=== PATIENT | female | born 1985 | race Two or more races ===

== ENCOUNTER 2016-09-12 13:34 | Emergency (ER) | payer MEDICAID ==
[2016-09-12 14:00] VITALS: BP 142/101; PULSE 75; RESP 18; TEMP 98.2; O2SAT 96
--- NOTE | 2016-09-12 15:27 | UCPHY ---
H & P Time Seen by Provider: 09/12/16 15:21 Patient Type: Established HPI/ROS: HPI: 31-year-old female presents to urgent care with chief concern bed bug bites. Developed these lesions yesterday morning. Has a known bed bug infestation in her apartment. She and her children have gone to sleep at her mother's. Denies fever, chills, URI symptoms, abdominal pain, nausea, vomiting , diarrhea. Takes Claritin daily with some improvement. ROS:10 point review of systems is negative other than as stated in HPI Smoking Status: Current every day smoker Physical Exam: Vital signs stable, reviewed by me General: Awake, alert, calm, cooperative. No acute distress. Head: Normalocephalic. Atraumatic. EENT: PERRLA. EOMI. No pallor or injection. Neck: Supple, nontender. No lymphadenopathy. Full range of motion. No meningismus. Respiratory: Breathing unlabored. Breath sounds equal bilaterally and clear to auscultation. No adventitious sounds. CV: Chest nontender, atraumatic. Heart rate regular. GI: Abdomen soft, nontender. Bowel sounds normoactive and positive x4 quadrants. Neuro: Alert. Oriented x 3. Speech clear. Skin: Skin warm, dry, 1 cm diameter erythematous lesions scattered about the upper extremities, lower extremities, several on neck Extremities: Full range of motion in all 4 extremities. Strength 5+ all extremities. Constitutional: Initial Vital Signs Temperature (C) 36.8 C 09/12/16 13:57 Heart Rate 75 09/12/16 13:57 Respiratory Rate 18 09/12/16 13:57 Blood Pressure 142/101 H 09/12/16 13:57 O2 Sat (%) 96 09/12/16 13:57 O2 Delivery Mode Room Air Allergies/Adverse Reactions: No Known Allergies Allergy (Unverified 09/12/16 13:56) Home Medications: Medication Instructions Recorded Claritin 09/12/16 LYRICA 09/12/16 Triamcinolone Acetonide 60 ml TP Q3-4PRN PRN #1 lotion 09/12/16 [Triamcinolone Acetonide 0.1% Lot] Medical Decision Making ED Course/Re-evaluation: Afebrile nontoxic female presents to urgent care with known bed bug infestation of her apartment. Lesions appeared yesterday. She has gone to stay at her mother's house while her apartment is rehabilitation assistant id. She agrees to follow up next week primary care Differential Diagnosis: Bedbugs, scabies, dermatitis, infection Departure - Departure Disposition: Home, Routine, Self-Care Clinical Impression: Bedbug bite Qualifiers: Qualifier Code: (W57.XXXA) Bitten or stung by nonvenomous insect and other nonvenomous arthropods, initial encounter Condition: Good Additional Instructions: Plan: May use steroid cream to bug bite lesions every 3 hours as needed Continue to take your Claritin [id number] once daily May use 50 mg of Benadryl at bedtime Follow up with primary care next week Get rehabilitation assistant to eradicate apartment from bedbugs Referrals: Shivani Zimmerman MD [Primary Care Provider] - As per Instructions Prescriptions: Triamcinolone Acetonide [Triamcinolone Acetonide 0.1% Lot] 60 ml TP Q3-4PRN PRN #1 lotion PRN Reason: Itching - PQRS PQRS Measurement: Not applicable
[2016-09-12] MEDS ORDERED: DEXAMETHASONE 4 MG TAB PO ONE (15:31)
== END 2016-09-12 15:40 | disposition home or self-care (01) ==
LOC: CED 13:34
DX: S40.879A Other superficial bite of unspecified upper arm, initial encounter (principal); S80.87 Other superficial bite of lower leg; S10.97XA Other superficial bite of unspecified part of neck, initial encounter; W57.XXXA Bitten or stung by nonvenomous insect and other nonvenomous arthropods, initial encounter; F17.200 Nicotine dependence, unspecified, uncomplicated
CPT/HCPCS: G0463-PO

== ENCOUNTER 2017-07-20 20:39 | Emergency (ER) | payer MEDICAID ==
[2017-07-20] MEDS ORDERED: IBUPROFEN 600 MG TAB PO ONE (20:56)
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
[2017-07-20 21:01] VITALS: BP 147/78; PULSE 90; RESP 16; TEMP 98.2; O2SAT 94
== END 2017-07-20 21:15 | disposition home or self-care (01) ==
LOC: CED 20:39
PROC: 2W28X4Z Dressing of Right Upper Extremity using Bandage (ICD-10-PCS; principal; 2017-07-20)
DX: T23.151A Burn of first degree of right palm, initial encounter (principal); F17.200 Nicotine dependence, unspecified, uncomplicated; X08.8XXA Exposure to other specified smoke, fire and flames, initial encounter

== ENCOUNTER 2017-11-02 08:01 | Emergency (ER) | payer MEDICAID ==
[2017-11-02 08:23] VITALS: RESP 18; TEMP 98
[2017-11-02] MEDS ORDERED: IPRATROPIUM/ALBUTEROL 3 ML DEYVIAL IH ONE (08:46)
--- NOTE | 2017-11-02 09:20 | EDPHY ---
H & P Stated Complaint: c/o Last night having fits/night purdy- this am Dizzy Time Seen by Provider: 11/02/17 08:05 HPI/ROS: CHIEF COMPLAINT: Dizzy History by patient HISTORY OF PRESENT ILLNESS: 32-year-old woman with a history of all opioid abuse who is currently on Suboxone, Antabuse, Campral and Zoloft complains of feeling dizzy as if the room is spinning and unsteady. Patient states that she has had a persistent dry cough not associated with any fever, chills, sore throat or runny nose or body aches. She is a smoker. Last night because she was coughing so badly she took dextromethorphan initially 5 mL with no relief so then she took a 2nd dose. Then fell asleep and had strange dreams and woke feeling poorly this morning. Patient states that her blood pressures been running high when she goes to see her welfare specialist but has never been as high as today. REVIEW OF SYSTEMS: As in HPI, and all other systems reviewed and are negative Source: Patient - Personal History LMP (Females 10-55): IUD In Place Current Tetanus Diphtheria and Acellular Pertussis (TDAP): Yes - Medical/Surgical History Hx Asthma: No Hx Chronic Respiratory Disease: No Hx Diabetes: No Hx Cardiac Disease: No Hx Renal Disease: No Hx Cirrhosis: No Hx Alcoholism: No Hx HIV/AIDS: No Hx Splenectomy or Spleen Trauma: No Other PMH: back pain, opiate recovery, insomnia, depression, - Social History Smoking Status: Current every day smoker - Physical Exam Exam: General Appearance: Alert, obese, speaking full sentences, nontoxic-appearing. Head: normocephalic, atraumatic Eyes: Pupils equal and round, reactive to light, no pallor or injection. Extraocular movements intact, minimal right gaze nystagmus, extinguishable TMs: Clear bilaterally Mouth: Mucous membranes moist. Oropharynx clear Respiratory: Normal, effort, lungs with diffuse inspiratory and expiratory wheezes Cardiovascular: Regular rate and rhythm. S1, S2, no murmurs, gallops or rubs appreciated Gastrointestinal: Abdomen is soft and nontender, no masses, bowel sounds normal. Back: No CVA tenderness, no bony tenderness Neurological: Awake, alert and oriented x 3, no pronator drift, normal gait, no pronator drift, reflexes brisk bilaterally but no clonus, no tremor or rigidity Skin: Warm and dry, no rashes. Musculoskeletal: No deformities or tenderness. Extremities: full range of motion, no edema, DP2+ bilat Psychiatric: Patient has normal affect, there is no agitation. Constitutional: Initial Vital Signs Temperature (C) 36.6 C 11/02/17 08:21 Heart Rate 84 11/02/17 08:21 Respiratory Rate 18 11/02/17 08:21 Blood Pressure 200/115 H 11/02/17 08:21 O2 Sat (%) 97 11/02/17 08:21 O2 Delivery Mode Room Air Allergies/Adverse Reactions: No Known Allergies Allergy (Unverified 07/20/17 20:52) Home Medications: Medication Instructions Recorded BUPRENORPHINE HCL/NALOXONE HCL 07/20/17 [SUBOXONE 2 MG-0.5 MG TABLET] Paraguard 07/20/17 Sertraline HCl [Zoloft 50mg (*)] 07/20/17 Albuterol [Proventil Inhaler HFA 1 - 2 puffs IH Q4H #1 mdi 11/02/17 (*)] Disulfiram 11/02/17 predniSONE 20 mg PO DAILY #5 tablet 11/02/17 Medical Decision Making ED Course/Re-evaluation: 32-year-old woman presents complaining of dizziness after taking too much dextromethorphan and also persistent dry cough and is found to be wheezing on exam. Patient is also noted to have an extremely high blood pressure. I suspect her dizziness is related to the dextromethorphan and also wonder if this is some mild serotonin syndrome precipitated by the dextromethorphan since she is already on the Zoloft and Suboxone and this may be contributing to her blood pressure. She has no clonus or agitation and she does not have full blown serotonin syndrome. I recommended the patient stop taking dextromethorphan and not take in the future. I am also recommending she follow up closely with her PCP and welfare specialist to discuss continuing both Suboxone and the Zoloft together as this may be contributing to her blood pressure. We discussed the need to quit smoking for her cough. Because the patient is wheezing here although there is no evidence of respiratory distress or hypoxia patient was given a DuoNeb with subjective improvement but persistent wheezing on exam. She is therefore given a dose of oral prednisone and 2nd albuterol neb. On re- evaluation after this and have the patient is markedly improved with clear lungs. Oxygen saturation remains within normal limits. She will be discharged home with an albuterol inhaler and a burst of oral steroids. Again I am recommending close follow-up with primary care physician for this too. We also discussed the need to have her blood pressure closely followed by her primary care physician and see if it is related to the patient these are changed. - Data Points Medications Given: Discontinued Medications Albuterol (Proventil Neb) 3 ml IH EDNOW ONE Stop: 11/02/17 09:22 Last Admin: 11/02/17 09:26 Dose: 3 ml Albuterol/Ipratropium (Duoneb) 3 ml IH EDNOW ONE Stop: 11/02/17 08:47 Last Admin: 11/02/17 08:57 Dose: 3 ml Prednisone (Prednisone) 40 mg PO EDNOW ONE Stop: 11/02/17 09:22 Last Admin: 11/02/17 09:26 Dose: 40 mg Departure - Departure Disposition: Home, Routine, Self-Care Clinical Impression: Dizziness, Wheezing, Elevated blood pressure reading Condition: Fair Instructions: Serotonin Syndrome (ED), Wheezing (ED) Additional Instructions: You were seen by Dr. Joselin Berry today. Your symptoms of dizziness was likely related to the dextromethorphan an cough medicine he took last night. Do not take this medicine again! It interferes with your other medications and may be contributing to your high blood pressure and feeling unwell. Please discuss your medications and your blood pressure with your addiction medicine specialist and her primary care physician as you may have some mild serotonin syndrome related to this that is causing high blood pressure and twitchy muscles, and difficulty sleeping. Please see your primary care physician as soon as possible to follow up with your blood pressure and to recheck your lungs to make sure that medications we have prescribed have improved the wheezing. I recommend stop smoking and this will improve your cough and wheezing. Return for any worsening or new concerns. Referrals: Shivani Zimmerman MD [Primary Care Provider] - As per Instructions Prescriptions: Albuterol [Proventil Inhaler HFA (*)] 1 - 2 puffs IH Q4H #1 mdi predniSONE 20 mg PO DAILY #5 tablet
[2017-11-02] MEDS ORDERED: predniSONE 20 MG TAB PO ONE (09:21)
[2017-11-02] MEDS ORDERED: ALBUTEROL 3 ML DEYVIAL IH ONE (09:21)
[2017-11-02 10:23] VITALS: BP 166/100; PULSE 85; O2SAT 96
== END 2017-11-02 10:01 | disposition home or self-care (01) ==
LOC: CED 08:01
DX: R42 Dizziness and giddiness (principal); R06.2 Wheezing; R03.0 Elevated blood-pressure reading, without diagnosis of hypertension; F17.200 Nicotine dependence, unspecified, uncomplicated
CPT/HCPCS: J7512; J7613